=== PATIENT | female | born 1980 | race Caucasian/White ===

== ENCOUNTER 2016-06-01 19:54 | Emergency (ER) | payer BC ==
--- NOTE | 2016-06-01 20:46 | PD ---
HPI Chief Complaint Vaginal discharge Date Seen: Jun 01, 2016 Time Seen: 20:35 Travel History International Travel<30 Days: No Contact w/Intl Traveler<30Days: No Known Affected Area: No History of Present Illness HPI 36-year-old who is at 24 weeks and 6 days comes in today complaining of watery vaginal discharge. Patient has had a couple of episodes today where she had a bit of discharge that appeared to be more watery than usual and she became somewhat concerned and came in. She states that after urinating she has had frequently some post voiding leaking of urine a couple minutes after she finishes and she wasn't sure if this was a similar incident or if this was possibly leaking of her amniotic fluid. Patient denies vaginal bleeding, abdominal pain, or contractions. Para: 0 : 1 History Past Medical History Narrative Medical Asthma Past Surgical History Narrative Surgical Breast augmentation wisdom tooth removal Family History Family History: Negative Social History Alcohol Use: No Tobacco Use: No Substance Abuse: No Allergies-Medications (Allergen,Severity, Reaction): Coded Allergies: No Known Allergies (Unverified , 06/04/15) Review of Systems Except as stated in HPI: all other systems reviewed are Neg Physical Exam Narrative GENERAL: Well-nourished, well-developed patient. SKIN: Warm and dry. HEAD: Normocephalic and atraumatic. EYES: No scleral icterus. No injection or drainage. ENT: No nasal drainage noted. Mucous membranes pink. Airway patent. NECK: Supple, trachea midline. No JVD. CARDIOVASCULAR: Regular rate and rhythm without murmurs, gallops, or rubs. RESPIRATORY: Breath sounds equal bilaterally. No accessory muscle use. BREASTS: Bilateral exam showed no masses , no retractions, no nipple discharge. ABDOMEN/GI: Abdomen soft, non-tender, bowel sounds present, no rebound, no guarding Gravid to [-] weeks size Fundal Height: [-25] GENITOURINARY: External Genitalia: intact and normal in appearance BUS glands: [Normal-] Cervix: [-] Dilatation: [-] Effacement: [-] Station: [-] Presentation: [-] Membranes: [intact or ruptured] Amnisure negative, no fluid noted on exam. Uterine Contractions: [-] FHT's: Category: [-1] Baseline: [-1:30] Reactive: [Moderate-] Variability: [-Moderate] Decels: [Absent-] EXTREMITIES: No cyanosis or edema. BACK: Nontender without obvious deformity. No CVA tenderness. NEUROLOGICAL: Awake and alert. Motor and sensory grossly within normal limits. Five out of 5 muscle strength in all muscle groups. Normal speech. Data Data Vital Signs Reviewed: Yes MDM Plan 36-year-old at 24 weeks and 6 days comes in today due to vaginal discharge. Amnisure is negative on examination Category 1 heart rate tracing is noted Follow-up as scheduled with OB provider Diagnosis Diagnosis: Primary Impression: 24 weeks gestation of Additional Impression: Vaginal discharge during Disposition: DISCHARGE HOME Argelia Bonner MD Jun 01, 2016 20:46
== END 2016-06-01 20:50 | disposition home or self-care (01) ==
LOC: HOBED 19:54
DX: O26.92 Pregnancy related conditions, unspecified, second trimester (principal); N89.8 Other specified noninflammatory disorders of vagina; Z3A.24 24 weeks gestation of pregnancy
CPT/HCPCS: 84112; 99283

== ENCOUNTER 2016-09-19 14:28 | Emergency (ER) | payer BC ==
--- NOTE | 2016-09-19 15:04 | PD ---
HPI Chief Complaint Contractions Date Seen: Sep 19, 2016 Travel History International Travel<30 Days: No Contact w/Intl Traveler<30Days: No Known Affected Area: No History of Present Illness HPI Patient is 36-year-old white female at [address] Gill for care. She presents planning contractions that are every 4 minutes or so. heart rate is reactive here and the contractions are about every 6 minutes. Para: 0 : 1 History Social History Alcohol Use: No Tobacco Use: No Substance Abuse: No Allergies-Medications (Allergen,Severity, Reaction): Coded Allergies: No Known Allergies (Unverified , 06/04/15) Review of Systems General / Constitutional: No: Fever, Weight Gain, Chills, Other Eyes: No: Diploplia, Blurred Vision, Visual changes, Pain, Photophobia HENT: No: Headaches, Vertigo, Lightheadedness Cardiovascular: No: Irregular Rhythm, Chest Pain or Discomfort, Palpitations, Tachycardia, Syncope, Varicosities, Edema, Cyanosis Respiratory: No: Cough, Short of Breath, Other Gastrointestinal: No: Nausea, Vomiting, Diarrhea Genitourinary: No: Decreased Urinary Output, Oliguria Musculoskeletal: No: Limited ROM, Weakness, Cramping, Edema, Pain Skin: No Rash, No Itching, No Dryness, No Lumps, No Change in Pigmentation, No Change in Nails, No Alopecia, No Lesions Neurologic: No: Weakness, Dizziness, Syncope, Focal Abnormalities, Coordination Problem, Headache, Slurred Speech, Seizures Psychiatric: No: Depression, Suicidal Ideations, Homicidal Ideation Endocrine: No: Heat Intolerance, Cold Intolerance, Polydipsia, Polyuria, Other Physical Exam Narrative GENERAL: Well-nourished, well-developed patient. SKIN: Warm and dry. HEAD: Normocephalic and atraumatic. EYES: No scleral icterus. No injection or drainage. ENT: No nasal drainage noted. Mucous membranes pink. Airway patent. NECK: Supple, trachea midline. No JVD. CARDIOVASCULAR: Regular rate and rhythm without murmurs, gallops, or rubs. RESPIRATORY: Breath sounds equal bilaterally. No accessory muscle use. BREASTS: Bilateral exam showed no masses , no retractions, no nipple discharge. ABDOMEN/GI: Abdomen soft, non-tender, bowel sounds present, no rebound, no guarding Gravid to [-40] weeks size Fundal Height: [-40] GENITOURINARY: External Genitalia: intact and normal in appearance BUS glands: [-] Cervix: [-] Dilatation: [2-] Effacement: [-60] Station: [-2] Presentation: [-vtx] Membranes: [intact ] Uterine Contractions: [-q 6 min] FHT's: Category: [-1] Baseline: [133-] Reactive: [yes-] Variability: [mod-] Decels: [-none] EXTREMITIES: No cyanosis or edema. BACK: Nontender without obvious deformity. No CVA tenderness. NEUROLOGICAL: Awake and alert. Motor and sensory grossly within normal limits. Five out of 5 muscle strength in all muscle groups. Normal speech. MDM Interpretation(s) Patient is 36-year-old white female at [address] Gill for care. She presents clinically contractions. Cervix is 2/60/-2 vertex which is a small change from yesterday when she was fingertip and thick. She is scheduled for induction tomorrow night for postdates. heart rate tracing is reactive Plan Plan to discharge home to bedrest and she can use a heating pad for pain also can soak in a hot bath tub. She is going to observe contractions and see what they are doing if they get more regular and stronger that she will return. She has a leakage of fluid or bleeding significant she will return. Diagnosis Diagnosis: Primary Impression: 40 weeks gestation of Additional Impression: Uterine contractions during Disposition: DISCHARGE HOME Condition: Stable Edison Batres II, MD Sep 19, 2016 15:04
[2016-09-19] MEDS ORDERED: PREN29TA PO (23:45)
== END 2016-09-19 15:42 | disposition home or self-care (01) ==
LOC: HOBED 14:28
DX: O47.1 False labor at or after 37 completed weeks of gestation (principal); Z3A.40 40 weeks gestation of pregnancy
CPT/HCPCS: 59025

== ENCOUNTER 2016-09-19 18:22 | Inpatient (IN) | payer BC ==
[~2016-09-19] VITALS: Ht 157.5 cm; Wt 71.2 kg
[2016-09-19] VITALS (46 sets, daily range): BP systolic 100–138; BP diastolic 43–78; PULSE 62–82; RESP 18–22; TEMP 98.7
--- NOTE | 2016-09-19 18:48 | HHI.HP ---
HPI Chief Complaint Contraction pain and water broke Date Seen: Sep 19, 2016 Travel History International Travel<30 Days: No Contact w/Intl Traveler<30Days: No Known Affected Area: No History of Present Illness HPI 36-year-old white female at 40 weeks patient of [facility] clinic who presents with spontaneous rupture membranes with gross rupture noted on OB ED and contractions are regular. She states she's 56 cm 90% -1 vertex, heart rate tracing is reactive contractions are regular Para: 0 : 1 History Social History Alcohol Use: No Tobacco Use: No Substance Abuse: No Allergies-Medications (Allergen,Severity, Reaction): Coded Allergies: No Known Allergies (Unverified , 06/04/15) Review of Systems General / Constitutional: No: Fever, Weight Gain, Chills, Other Eyes: No: Diploplia, Blurred Vision, Visual changes, Pain, Photophobia HENT: No: Headaches, Vertigo, Lightheadedness Cardiovascular: No: Irregular Rhythm, Chest Pain or Discomfort, Palpitations, Tachycardia, Syncope, Varicosities, Edema, Cyanosis Respiratory: No: Cough, Short of Breath, Other Gastrointestinal: Abdominal Pain, No: Nausea, Vomiting, Diarrhea Genitourinary: No: Decreased Urinary Output, Oliguria Musculoskeletal: No: Limited ROM, Weakness, Cramping, Edema, Pain Skin: No Rash, No Itching, No Dryness, No Lumps, No Change in Pigmentation, No Change in Nails, No Alopecia, No Lesions Neurologic: No: Weakness, Dizziness, Syncope, Focal Abnormalities, Coordination Problem, Headache, Slurred Speech, Seizures Psychiatric: No: Depression, Suicidal Ideations, Homicidal Ideation Endocrine: No: Heat Intolerance, Cold Intolerance, Polydipsia, Polyuria, Other Physical Exam Narrative GENERAL: Well-nourished, well-developed patient. SKIN: Warm and dry. HEAD: Normocephalic and atraumatic. EYES: No scleral icterus. No injection or drainage. ENT: No nasal drainage noted. Mucous membranes pink. Airway patent. NECK: Supple, trachea midline. No JVD. CARDIOVASCULAR: Regular rate and rhythm without murmurs, gallops, or rubs. RESPIRATORY: Breath sounds equal bilaterally. No accessory muscle use. BREASTS: Bilateral exam showed no masses , no retractions, no nipple discharge. ABDOMEN/GI: Abdomen soft, non-tender, bowel sounds present, no rebound, no guarding Gravid to [40-] weeks size Fundal Height: [40-] GENITOURINARY: External Genitalia: intact and normal in appearance BUS glands: [-] Cervix: [-] Dilatation: [5-6-] Effacement: [90-] Station: [-2] Presentation: [-vtx] Membranes: [ ruptured] Uterine Contractions: [-reg] FHT's: Category: [1-] Baseline: [133-] Reactive: [yes-] Variability: [mod-] Decels: [-none] EXTREMITIES: No cyanosis or edema. BACK: Nontender without obvious deformity. No CVA tenderness. NEUROLOGICAL: Awake and alert. Motor and sensory grossly within normal limits. Five out of 5 muscle strength in all muscle groups. Normal speech. Data Data Orders Ob (2e) Additional Admit Info (09/19/16 18:42) Assessment/Plan Assessment and Plan The patient is 36-year-old white female at [address] Gill for care. She presents combining of ruptured membranes and her banerjee grossly ruptured. Sections are regular. Cervix is 5-6 cm 90% -2 station. Impression-- active labor at term with ruptured membranes spontaneously- Plans admission the hospital for labor management augmentation as needed. Patient will be cared for by Edison Machado II, MD Sep 19, 2016 18:48
[2016-09-19] MEDS ORDERED: LACTATED RINGER'S 1000 ML INJ 1,000 ML IV PRN (18:50)
[2016-09-19] MEDS ORDERED: MINERAL OIL 10 ML VIAL TOPICAL PRN (19:00)
[2016-09-19] MEDS ORDERED: CITRIC ACID-SODIUM CITRATE LIQ 30 ML UDC PO SCH (19:00)
[2016-09-19] MEDS ORDERED: OXYTOCIN 30 UNITS-500ML PREMIX 500 ML IV ONE (19:00)
[2016-09-19] MEDS ORDERED: LIDOCAINE HCL 1% 50 ML VIAL I-DERMAL PRN (19:00)
[2016-09-19] MEDS ORDERED: SODIUM CHLORID 0.9% 500 ML INJ 500 ML IV PRN (19:00)
[2016-09-19] MEDS ORDERED: LIDOCAINE HCL 1% 50 ML VIAL INFIL PRN (19:00)
[2016-09-19] MEDS ORDERED: SODIUM CHLOR 0.9% 1000 ML INJ 1,000 ML IV PRN (19:10)
[2016-09-19] MEDS ORDERED: fentaNYL 2MCG-BUPIV 0.125% INJ 100 ML ONE (19:11)
[2016-09-19] MEDS: LACTATED RINGER'S 1000 ML INJ 1,000 ML IV SCH (19:18)
[2016-09-19 19:25] LABS: AUTOMATED NEUTROPHIL # 11.7 TH/MM3 (1.8-7.7); BASOPHIL % 0.3 % (0.0-2.0); EOSINOPHIL % 0.2 % (0.0-4.0); HEMATOCRIT 34.8 % (35.0-46.0); HEMO FLAGS DIFF FINAL; LYMPH % 11.5 % (9.0-44.0); LYMPHOCYTE # 1.6 TH/MM3 (1.0-4.8); MEAN CELL VOLUME 87.3 FL (80.0-100.0); MEAN CORPUSCULAR HEMOGLOBIN 30.4 PG (27.0-34.0); MEAN CORPUSCULAR HGB CONC 34.8 % (32.0-36.0); MONO % 4.7 % (0.0-8.0); NEUT % 83.3 % (16.0-70.0); PLATELET COUNT 210 TH/MM3 (150-450); RED BLOOD COUNT 3.99 MIL/MM3 (4.00-5.30); RED CELL DISTRIBUTION WIDTH 13.3 % (11.6-17.2)
[2016-09-19 19:35] LABS: BLOOD, URINE MOD (NEG); COMMENT (UR) CULT NOT INDICATED; CULTURE IF INDICATED CULT NOT INDICATED; GLUCOSE,URINE NEG (NEG); KETONE, URINE 80 mg/dL (NEG); MUCUS URINE FEW /lpf (OCC); NITRITE,URINE NEG (NEG); SQUAMOUS EPITHELIAL CELL URINE 4 /hpf (0-5); URINE COLOR YELLOW (YELLW/STRAW)
[2016-09-19] MEDS ORDERED: PREN29TA PO (23:45)
[2016-09-20] VITALS (57 sets, daily range): BP systolic 110–152; BP diastolic 53–87; PULSE 62–85; RESP 16–20; TEMP 98.4–98.8
[2016-09-20] MEDS ORDERED: OXYTOCIN 30 UNITS/NS 500ML PREMIX IV SCH (00:15)
[2016-09-20] MEDS ORDERED: fentaNYL 2MCG-BUPIV 0.125% INJ 100 ML ONE ×2 (01:15→06:27)
[2016-09-20] MEDS: LACTATED RINGER'S 1000 ML INJ 1,000 ML IV SCH ×2 (01:20→09:12)
[2016-09-20] MEDS ORDERED: OXYTOCIN 30 UNITS-500ML PREMIX 500 ML IV ONE (11:45)
[2016-09-20] MEDS ORDERED: BENZOCAINE 20% TOPICAL SPRAY 60 ML CAN TOPICAL PRN (11:45)
[2016-09-20] MEDS ORDERED: ONDANSETRON ODT 4 MG TAB PO PRN (11:45)
[2016-09-20] MEDS ORDERED: oxyCODONE/ACETAMINOPHEN 5 MG/325 MG TAB PO PRN ×2 (11:45)
[2016-09-20] MEDS ORDERED: WITCH HAZEL 50%/GLYCERIN 12.5% 40 PAD JAR TOPICAL PRN (11:45)
[2016-09-20] MEDS ORDERED: ALUMINUM/MAGNESIUM/SIMETH 30 ML CUP PO PRN (11:45)
[2016-09-20] MEDS ORDERED: SODIUM CHLORIDE 0.9% FLUSH 10 ML FLUSH IV FLUSH PRN (11:45)
[2016-09-20] MEDS ORDERED: ZOLPIDEM TARTRATE 5 MG TAB PO PRN (11:45)
--- NOTE | 2016-09-20 11:45 | PD.OB.DELI ---
Delivery Date: Sep 20, 2016 Anesthesia: Epidural Episiotomy: None Vaginal Delivery: Normal Presentation: Occiput anterior Nuchal Cord: None Delayed cord clamping (45 sec): Yes : Female One Minute : 9 Five Minute : 9 Weight: 6/1 Placenta: Spontaneous delivery, Intact, 3 vessel cord Laceration: Vaginal laceration, 1 deg Estimated blood loss: 300 Additional Information Beautiful delivery of baby Jessica Negron by her dad Garrison Small 7mm vaginal laceration of the hymen repaired with single stich of 3-0 vicryl. Long labor. John Islas MD Sep 20, 2016 11:45
[2016-09-20] MEDS ORDERED: OXYTOCIN 30 UNITS-500ML PREMIX 500 ML IV SCH (12:00)
[2016-09-20] MEDS: IBUPROFEN 600 MG TAB PO PRN ×2 (12:21→19:20)
[2016-09-20] MEDS ORDERED: fentaNYL 2MCG-BUPIV 0.125% 100 ML EPIDURAL SCH (14:00)
[2016-09-20] MEDS ORDERED: ePHEDrine/NS 25 MG/5 ML SYR IV PRN (14:00)
[2016-09-20] MEDS ORDERED: NO SYSTEM NARCOTICS PRN (14:00)
[2016-09-20] MEDS ORDERED: DO NOT ADMINISTER ANTICOAGULANTS PRN (14:00)
[2016-09-20] MEDS ORDERED: MEASLES, MUMPS, RUBELLA VACCINE 0.5 ML VIAL SQ ONE (16:00)
[2016-09-20] MEDS ORDERED: DIPHTH/TETANUS/ACEL PERTUSSIS (BOOSTER) 0.5 ML VIAL/PFS IM ONE (16:00)
[2016-09-20] MEDS: ACETAMINOPHEN 325 MG TAB PO PRN (19:20)
[2016-09-20] MEDS ORDERED: SODIUM CHLORIDE 0.9% FLUSH 10 ML FLUSH IV FLUSH SCH (21:00)
[2016-09-20] MEDS: DOCUSATE SODIUM 50 MG/SENNA 8.6 MG TAB PO PRN (21:03)
[2016-09-21] MEDS: ACETAMINOPHEN 325 MG TAB PO PRN ×4 (01:31→20:10)
[2016-09-21] MEDS: IBUPROFEN 600 MG TAB PO PRN ×4 (01:31→20:10)
[2016-09-21] MEDS ORDERED: IBUP-232 PO (08:10)
--- NOTE | 2016-09-21 08:12 | HHI.DCPOC ---
Discharge Care Plan Diagnosis: (1) Vaginal delivery Report Symptoms to Your Doctor -Temperature above 100.5 degrees -Redness, of incision or excessive or foul smelling drainage -Unusual pain or calf pain -Increased vaginal bleeding -Painful or difficulty urinating -Feelings of extreme sadness or anxiety after 2 weeks Goals to Promote Your Health * To prevent worsening of your condition and complications * To maintain your health at the optimal level Directions to Meet Your Goals Take your medications as prescribed Follow your dietary instruction Follow activity as directed Ensure plenty of rest for recovery Drink fluids for hydration Keep your appointments as scheduled Take your immunizations and boosters as scheduled If your symptoms worsen call your PCP, if no PCP go to Urgent Care Center or Emergency Room Smoking is Dangerous to Your Health. Avoid second hand smoke Call the 24-hour crisis hotline for domestic abuse at John Islas MD Sep 21, 2016 08:12
--- NOTE | 2016-09-21 08:19 | HHI.OB ---
Subjective Post Day: 1 Remarks S/P , female, Doing well, needs another day for observation Objective Vitals/I&O Vital Signs Date Time Temp Pulse Resp B/P Pulse Ox O2 Delivery O2 Flow Rate FiO2 09/20/16 20:15 98.5 64 18 129/73 09/20/16 13:45 98.5 63 16 121/83 09/20/16 13:00 18 09/20/16 12:45 62 140/66 09/20/16 12:45 98.4 17 09/20/16 12:30 71 125/64 09/20/16 12:07 18 09/20/16 12:00 70 139/70 09/20/16 12:00 18 09/20/16 11:46 76 129/63 09/20/16 11:45 18 09/20/16 11:30 85 148/66 09/20/16 11:26 18 09/20/16 11:25 76 131/70 09/20/16 11:15 17 09/20/16 11:00 83 139/64 09/20/16 09:45 20 09/20/16 09:35 98.4 09/20/16 09:30 79 145/78 09/20/16 09:00 73 123/87 09/20/16 08:30 72 129/85 Objective Remarks GENERAL: Well-nourished, well-developed patient. CARDIOVASCULAR: Regular rate and rhythm without murmurs, gallops, or rubs. RESPIRATORY: Breath sounds equal bilaterally. No accessory muscle use. ABDOMEN/GI: Abdomen soft, non-tender. Fundus: Firm, non-tender at umbilicus. GENITOURINARY: Light to moderate bleeding. EXTREMITIES: No cyanosis or edema, non-tender, without signs of DVT. Medications and IVs Current Medications Medications (Trade) Dose Ordered Sig/Autumn Route Start Time Stop Time Status Last Admin (NS Flush) 2 ml BID IV FLUSH 09/20/16 21:00 (NS Flush) 2 ml UNSCH PRN IV FLUSH 09/20/16 11:45 (Tylenol) 650 mg Q4H PRN PO 09/20/16 11:45 09/21/16 07:56 (Motrin) 600 mg Q6H PRN PO 09/20/16 11:45 09/21/16 07:56 (Percocet 5-325 Mg) 1 tab Q4H PRN PO 09/20/16 11:45 (Percocet 5-325 Mg) 2 tab Q4H PRN PO 09/20/16 11:45 (Americaine 20% Top Spr) 1 spray Q4H PRN TOPICAL 09/20/16 11:45 09/20/16 21:03 (Tucks Pads) 1 applic QID PRN TOPICAL 09/20/16 11:45 09/20/16 21:03 (Nickie-Colace) 2 tab Q12H PRN PO 09/20/16 11:45 09/20/16 21:03 (Ambien) 5 mg HS PRN PO 09/20/16 11:45 (Mag-Al Plus Susp Liq) 15 ml Q8H PRN PO 09/20/16 11:45 (Zofran Odt) 4 mg Q6H PRN PO 09/20/16 11:45 Miscellaneous Information No systemic narcotics to be given except... UNSCH PRN .XX 09/20/16 14:00 09/21/16 13:59 Miscellaneous Information DO NOT ADMINISTER ANY ANTICOAGUL... UNSCH PRN .XX 09/20/16 14:00 09/21/16 13:59 (fentaNYL 2MCG-BUPIV 0.125% INJ) 100 ml @ 0 mls/hr TITRATE EPIDURAL 09/20/16 14:00 (ePHEDrine/NS 25 MG/5 ML SYR) 10 mg UNSCH PRN IV 09/20/16 14:00 09/21/16 13:59 Assessment/Plan Assessment and Plan #1, transitioning well but will need another day. stable ,? elevated bili. Discharge Planning Plan for tomorrow Attending Attestation Seen by Julien Frausto MD Sep 21, 2016 08:19
--- NOTE | 2016-09-21 08:48 | MH ---
cc: PATTY KERR DATE OF ADMISSION 09/19/2016 DATE OF 1980 CHIEF COMPLAINT The patient's admission for induction of labor at term intrauterine . PATIENT HISTORY The patient is a 36-year-old female 1, para 0 estimated date confinement is September 16, 2016. The patient's obstetrical course and was unremarkable. The patient's group B strep status is negative. Her blood type is B+. Patient declined genetic screening early in the . PAST MEDICAL HISTORY She has a history of mild asthma that is controlled and stable. ALLERGIES She has no known drug allergies. MEDICATIONS Current medications include: 1. vitamins 2. Albuterol inhaler as needed PAST SURGICAL HISTORY The patient's past surgical history is negative. FAMILY HISTORY Noncontributory PHYSICAL EXAM The patient is a well-appearing, well-nourished female in no acute distress. VITAL SIGNS: Stable. Blood pressure is 110/60. She weighs 155 pounds. She is 5 feet, 2 inches. HEENT: Shows no adenopathy, no thyromegaly. NECK: Supple with a full range of motion. LUNGS: Clear in all chen. CARDIAC: Regular rate and rhythm without murmur, rub or gallop. ABDOMEN: Gravid, full-term measuring 41 weeks. PELVIC: Vertex presentation, midline cervix that is soft, 50% and 1 cm -2 station intact. EXTREMITIES: Symmetrical, full range of motion. There is no cyanosis, clubbing, or edema. ASSESSMENT AND PLAN The patient at 40+ weeks intrauterine gestation for elective induction of labor. Estimated weight approximately 8 pounds. Pelvis is adequate. Group B Strep status is negative. The patient is to be brought in the evening of September 20 for Cervidil ripening with subsequent Pitocin in the morning. MD CHAR Butcher/GREGG /1:06 PM /8:44 AM
[2016-09-21] MEDS: DOCUSATE SODIUM 50 MG/SENNA 8.6 MG TAB PO PRN (14:09)
[2016-09-21 20:10] VITALS: BP 120/76; PULSE 63; RESP 16; TEMP 99.1
[2016-09-22] MEDS: IBUPROFEN 600 MG TAB PO PRN ×2 (02:28→08:42)
[2016-09-22] MEDS: ACETAMINOPHEN 325 MG TAB PO PRN ×2 (02:28→08:42)
--- NOTE | 2016-09-22 07:06 | HHI.OB ---
Subjective Post Day: 2 Remarks feeling muscle and joint aches nursing well concerned about the baby having fluid in her lungs. She is in the room and sleeping Objective Vitals/I&O Vital Signs Date Time Temp Pulse Resp B/P Pulse Ox O2 Delivery O2 Flow Rate FiO2 09/21/16 20:10 120/76 09/21/16 20:10 99.1 63 16 Objective Remarks GENERAL: Well-nourished, well-developed patient. CARDIOVASCULAR: Regular rate and rhythm without murmurs, gallops, or rubs. RESPIRATORY: Breath sounds equal bilaterally. No accessory muscle use. ABDOMEN/GI: Abdomen soft, non-tender. Fundus: Firm, non-tender at umbilicus. GENITOURINARY: Light to moderate bleeding. EXTREMITIES: No cyanosis or edema, non-tender, without signs of DVT. Medications and IVs Current Medications Medications (Trade) Dose Ordered Sig/Autumn Route Start Time Stop Time Status Last Admin (NS Flush) 2 ml BID IV FLUSH 09/20/16 21:00 (NS Flush) 2 ml UNSCH PRN IV FLUSH 09/20/16 11:45 (Tylenol) 650 mg Q4H PRN PO 09/20/16 11:45 09/22/16 02:28 (Motrin) 600 mg Q6H PRN PO 09/20/16 11:45 09/22/16 02:28 (Percocet 5-325 Mg) 1 tab Q4H PRN PO 09/20/16 11:45 (Percocet 5-325 Mg) 2 tab Q4H PRN PO 09/20/16 11:45 (Americaine 20% Top Spr) 1 spray Q4H PRN TOPICAL 09/20/16 11:45 09/20/16 21:03 (Tucks Pads) 1 applic QID PRN TOPICAL 09/20/16 11:45 09/20/16 21:03 (Nickie-Colace) 2 tab Q12H PRN PO 09/20/16 11:45 09/21/16 14:09 (Ambien) 5 mg HS PRN PO 09/20/16 11:45 (Mag-Al Plus Susp Liq) 15 ml Q8H PRN PO 09/20/16 11:45 Ondansetron HCl 4 mg 4 mg Q6H PRN PO 09/20/16 11:45 (fentaNYL 2MCG-BUPIV 0.125% INJ) 100 ml @ 0 mls/hr TITRATE EPIDURAL 09/20/16 14:00 Assessment/Plan Assessment and Plan PPD 2 Doing well needs to discuss concerns with in house peds discharge home today O Jairo 2-6 weeks counseled Discharge Planning Plan for tomorrow Chikis Barragan MD Sep 22, 2016 07:06
[2016-09-22 08:40] VITALS: BP 134/75; PULSE 66; RESP 18; TEMP 98.2
== END 2016-09-22 14:02 | disposition home or self-care (01) | DRG 775 ==
LOC: HOBED 18:22 → H2EA 18:42 → H1EA 09-20 13:15
PROVIDERS: ADMIT Obstetrics & Gynecology; ATTEND Obstetrics & Gynecology
PROC: 10E0XZZ Delivery of Products of Conception, External Approach (ICD-10-PCS; principal; 2016-09-20)
PROC: 0HQ9XZZ Repair Perineum Skin, External Approach (ICD-10-PCS; 2016-09-20)
DX: O99.52 Diseases of the respiratory system complicating childbirth (principal); J45.909 Unspecified asthma, uncomplicated; Z37.0 Single live birth; O70.0 First degree perineal laceration during delivery; Z3A.40 40 weeks gestation of pregnancy
CPT/HCPCS: 59025; 81001; 84112; 85025; 86900; 86901; J2590; J7120

== ENCOUNTER 2016-11-26 18:52 | Emergency (ER) | payer BC ==
[~2016-11-26] VITALS: Ht 154.9 cm; Wt 61.0 kg
[~2016-11-26 18:52] MED LIST: IBUP-232 PO; PREN29TA PO
[2016-11-26 18:59] VITALS: BP 161/82; PULSE 60; RESP 16; TEMP 98.5; O2SAT 99
[2016-11-26 19:48] VITALS: BP 134/85; PULSE 65; RESP 18; O2SAT 99
--- NOTE | 2016-11-26 19:50 | PD ---
HPI Chief Complaint: GI Complaint Time Seen by Provider: 19:21 Travel History International Travel<30 days: No Contact w/Intl Traveler<30days: No Traveled to known affect area: No History of Present Illness HPI The patient is a 36-year-old female that complains of some slight bilateral lower abdominal discomfort along with a mild diarrhea stools today. She states that 2 weeks ago her baby had Clostridium difficil and the patient had diarrhea for 10 days at that time. The patient's symptoms resolved and she did not have any problems until today with the mild loose stool and mild abdominal discomfort. She denies any fever. She does not have a primary care physician. She states there is no possibility of . [facility] Past Medical History Medical History: Denies Significant Hx Diminished Hearing: No Tetanus Vaccination: < 5 Years Influenza Vaccination: No ?: Not LMP: 10/27 Past Surgical History Surgical History: No Previous Surgery Social History Alcohol Use: No Tobacco Use: No Substance Use: No Allergies-Medications (Allergen,Severity, Reaction): Coded Allergies: No Known Allergies (Unverified , 11/26/16) Reported Meds & Prescriptions Reported Meds & Active Scripts Active No Active Prescriptions or Reported Medications Review of Systems Except as stated in HPI: all other systems reviewed are Neg Physical Exam Narrative GENERAL: The patient is alert, oriented 3, well-hydrated appearing in minimal apparent distress with her abdominal discomfort. Her vital signs show blood pressure 161/82 but are otherwise normal. SKIN: Focused skin assessment warm/dry. HEAD: Atraumatic. Normocephalic. EYES: Pupils equal and round. No scleral icterus. No injection or drainage. ENT: No nasal bleeding or discharge. Mucous membranes pink and moist. NECK: Trachea midline. No JVD. CARDIOVASCULAR: Regular rate and rhythm. No murmur appreciated. RESPIRATORY: No accessory muscle use. Clear to auscultation. Breath sounds equal bilaterally. GASTROINTESTINAL: Abdomen soft, with slight discomfort in the lower quadrants bilaterally to direct palpation, nondistended. Hepatic and splenic margins not palpable. No guarding or rebound is present. MUSCULOSKELETAL: No obvious deformities. No clubbing. No cyanosis. No edema. NEUROLOGICAL: Awake and alert. No obvious cranial nerve deficits. Motor grossly within normal limits. Normal speech. PSYCHIATRIC: Appropriate mood and affect; insight and judgment normal. RECTAL EXAM: No masses or tenderness, almost no stool is present in the rectum what staining there was was trace guaiac positive. No external hemorrhoids are present. Data Data Last Documented VS Vital Signs Date Time Temp Pulse Resp B/P (MAP) Pulse Ox O2 Delivery O2 Flow Rate FiO2 11/26/16 19:48 65 18 134/85 (101) 99 Room Air 11/26/16 18:59 98.5 Orders Orders Complete Blood Count With Diff (11/26/16 19:50) Basic Metabolic Panel (Bmp) (11/26/16 19:50) Sodium Chlor 0.9% 1000 Ml Inj (Ns 1000 M (11/26/16 20:00) Urinalysis - C+S If Indicated (11/26/16 19:52) Labs Laboratory Tests Test 11/26/16 20:00 White Blood Count 8.1 TH/MM3 Red Blood Count 4.61 MIL/MM3 Hemoglobin 12.9 GM/DL Hematocrit 40.0 % Mean Corpuscular Volume 86.8 FL Mean Corpuscular Hemoglobin 28.1 PG Mean Corpuscular Hemoglobin Concent 32.3 % Red Cell Distribution Width 13.6 % Platelet Count 314 TH/MM3 Mean Platelet Volume 9.2 FL Neutrophils (%) (Auto) 47.5 % Lymphocytes (%) (Auto) 40.3 % Monocytes (%) (Auto) 7.5 % Eosinophils (%) (Auto) 4.0 % Basophils (%) (Auto) 0.7 % Neutrophils # (Auto) 3.8 TH/MM3 Lymphocytes # (Auto) 3.3 TH/MM3 Monocytes # (Auto) 0.6 TH/MM3 Eosinophils # (Auto) 0.3 TH/MM3 Basophils # (Auto) 0.1 TH/MM3 CBC Comment DIFF FINAL Differential Comment Urine Color YELLOW Urine Turbidity CLEAR Urine pH 6.0 Urine Specific [place] 1.019 Urine Protein NEG mg/dL Urine Glucose (UA) NEG mg/dL Urine Ketones NEG mg/dL Urine Occult Blood SMALL Urine Nitrite NEG Urine Bilirubin NEG Urine Leukocyte Esterase NEG Urine RBC 0-3 /hpf Urine WBC 0-2 /hpf Urine Squamous Epithelial Cells 0-5 /hpf Microscopic Urinalysis Comment CULT NOT INDICATED Blood Urea Nitrogen 12 MG/DL Creatinine 0.71 MG/DL Random Glucose 84 MG/DL Calcium Level 8.6 MG/DL Sodium Level 139 MEQ/L Potassium Level 3.5 MEQ/L Chloride Level 106 MEQ/L Carbon Dioxide Level 26.2 MEQ/L Anion Gap 7 MEQ/L Estimat Glomerular Filtration Rate 94 ML/MIN MDM Medical Decision Making Medical Screen Exam Complete: Yes Emergency Medical Condition: Yes Medical Record Reviewed: Yes Interpretation(s) The CBC is normal and the basic metabolic profile is normal. The urinalysis is normal except for small occult blood and culture is not indicated. Differential Diagnosis Viral gastroenteritis, clostridium difficile enteritis, dehydration, electrolyte disorder, leukocytosis, anemia Narrative Course Laboratory is normal. She had a single minimal diarrhea stool today and this does not appear is a recurrence of clostridium difficile. She did not have a stool here in the emergency department. Plan: The patient to increase liquid intake and follow-up with a primary care physician. At this time I do not think that we should put the patient on Flagyl empirically with her history. She had been well for 2 weeks before this single episode. Diagnosis Primary Impression: Viral gastroenteritis Additional Instructions: Increase clear liquid intake and follow-up with a primary care physician. At this time I do not think he needs to be put on any medication. Med/Other Pt SpecificInfo: No Change to Meds Scripts No Active Prescriptions or Reported Meds Disposition: 01 DISCHARGE HOME Condition: Stable Vinay Montenegro MD Nov 26, 2016 19:50
[2016-11-26] MEDS ORDERED: SODIUM CHLOR 0.9% 1000 ML INJ 1,000 ML IV SCH (20:00)
[2016-11-26 20:31] LABS: AUTOMATED NEUTROPHIL # 3.8 TH/MM3 (1.8-7.7); BASOPHIL # 0.1 TH/MM3 (0-0.2); BASOPHIL % 0.7 % (0.0-2.0); EOSINOPHIL # 0.3 TH/MM3 (0-0.4); LYMPH % 40.3 % (9.0-44.0); LYMPHOCYTE # 3.3 TH/MM3 (1.0-4.8); MEAN CELL VOLUME 86.8 FL (80.0-100.0); MEAN CORPUSCULAR HEMOGLOBIN 28.1 PG (27.0-34.0); MEAN CORPUSCULAR HGB CONC 32.3 % (32.0-36.0); MONO % 7.5 % (0.0-8.0); NEUT % 47.5 % (16.0-70.0); PLATELET COUNT 314 TH/MM3 (150-450); RED BLOOD COUNT 4.61 MIL/MM3 (4.00-5.30); RED CELL DISTRIBUTION WIDTH 13.6 % (11.6-17.2); WHITE BLOOD COUNT 8.1 TH/MM3 (4.0-11.0)
[2016-11-26 20:34] LABS: BLOOD, URINE SMALL (NEG); GLUCOSE,URINE NEG (NEG); HEMO FLAGS DIFF FINAL; KETONE, URINE NEG (NEG); NITRITE,URINE NEG (NEG)
[2016-11-26 20:39] LABS: POTASSIUM 3.5 MEQ/L (3.5-5.1)
[2016-11-26 20:42] LABS: BICARBONATE 26.2 MEQ/L (21.0-32.0)
[2016-11-26 20:44] LABS: COMMENT (UR) CULT NOT INDICATED; CULTURE IF INDICATED CULT NOT INDICATED; RBC, URINE 0-3 /hpf (0-3); SQUAMOUS EPITHELIAL CELL URINE 0-5 /hpf (0-5); URINE COLOR YELLOW (YELLW/STRAW); WBC, URINE 0-2 /hpf (0-5)
[2016-11-26 21:33] VITALS: BP 130/78; PULSE 68; RESP 18; O2SAT 99
== END 2016-11-26 21:43 | disposition home or self-care (01) ==
LOC: PHED 18:52
DX: A08.4 Viral intestinal infection, unspecified (principal)
CPT/HCPCS: 80048; 81001; 85025; 96360; 99284; J7030